=== PATIENT | male | born 1950 | race Caucasian/White ===

== ENCOUNTER 2018-07-19 18:17 | Inpatient (IN) | payer MEDICARE, OTHER ==
[~2018-07-19] VITALS: Ht 180.3 cm; Wt 109.3 kg
[2018-07-19 19:30] LABS: Basophils # (auto) 0.1 uL; Eosinophils # (auto) 0.1 uL; Hemoglobin 18.6 g/dL (13.5-17.5); Monocytes # (auto) 1.1 uL
[2018-07-19] MEDS ORDERED: IPRATROPIUM BROM 0.5 MG/2.5ML INH SOL HHN ONE (19:30)
[2018-07-19] MEDS ORDERED: methylPREDNISolone SOD SUCC 125 MG/2 ML VL IV ONE (19:30)
[2018-07-19] MEDS ORDERED: ALBUTEROL SULF 2.5 MG/0.5ML(0.5%) NEB SOLN HHN ONE (19:30)
[2018-07-19 19:32] LABS: Basophils % (auto) 0.8 % (0.0-2.0); Eosinophils % (auto) 1.2 % (0.0-7.0); Hematocrit 55.7 % (41.0-53.0); Lymphocytes # (auto) 1.1 uL; Lymphocytes % (auto) 12.6 % (10.0-50.0); Mean Corpuscular Hemoglobin 31.8 pg (28.0-32.0); Mean Corpuscular Hgb Conc. 33.4 g/dL (32.0-36.0); Mean Corpuscular Volume 95.3 fL (80.0-100.0); Monocytes % (auto) 12.9 % (0.0-12.0); Neutrophils # (auto) 6.5 uL; Neutrophils % (auto) 72.5 % (37.0-80.0); Nucleated Red Blood Cells % 0.5 %; Platelet Count (auto) 191 10^3/uL (140-450); Red Blood Cells 5.84 10^6/uL (4.5-5.90); Red Cell Distribution Width 15.6 % (11.8-14.3); White Blood Cell 8.9 10^3/uL (4.4-10.8)
[2018-07-19 19:33] LABS: Albumin 3.2 g/dL (3.4-5.0); Calcium 8.6 mg/dL (8.5-10.1); Potassium 3.2 mmol/L (3.5-5.1)
[2018-07-19 19:38] LABS: Bilirubin, Total 1.1 mg/dL (0.2-1.0); Total Protein 7.1 g/dL (6.4-8.2)
[2018-07-19] MEDS ORDERED: ONDANSETRON HCL 4 MG/2 ML VIAL IV PRN (21:00)
[2018-07-19] MEDS ORDERED: ACETAMINOPHEN 325 MG TAB PO PRN (21:00)
[2018-07-19] MEDS ORDERED: ALBUTEROL SULF 2.5 MG/0.5ML(0.5%) NEB SOLN NEB PRN (21:00)
[2018-07-19] MEDS ORDERED: HYDROcodone-ACET 5/325MG TAB PO PRN (21:00)
[2018-07-19] MEDS ORDERED: ASPirin 81 mg TAB PO ONE (21:00)
[2018-07-19] MEDS ORDERED: MORPHINE SULFATE 4 MG/ML SYR/VIAL IV PRN (21:00)
[2018-07-19] MEDS ORDERED: NITROGLYCERIN 0.4 MG SL TAB SL PRN (21:00)
[2018-07-19 21:22] VITALS: BP 113/69
[2018-07-19] MEDS ORDERED: cefTRIAXone 1GM/50ML D5W 50 ML IV ONE (21:45)
[2018-07-19] MEDS ORDERED: ATORVASTATIN 20 MG TAB PO SCH (22:00)
[2018-07-19] MEDS: FAMOTIDINE 20 MG TAB PO SCH (22:43)
[2018-07-19] MEDS ORDERED: CARVEDILOL 3.125 MG TAB PO ONE (22:45)
[2018-07-19] MEDS ORDERED: ATORVASTATIN 20 MG TAB PO ONE (22:45)
[2018-07-19] MEDS ORDERED: ENOXAPARIN SOD 100 MG/1 ML SYRINGE SC ONE (22:45)
[2018-07-19 23:15] LABS: INR 1.23 (0.9-1.15); Partial Thromboplastin Time 32.4 sec (23.78-33.04)
[2018-07-19 23:28] VITALS: BP 113/78
--- NOTE | 2018-07-19 23:28 | NUR ---
Telemetry admit from [facility] admitted to Telemetry unit after SBAR received. Patient oriented to NIKKI MEJIA, RN primary RN, unit, room, bed, and unit policies regarding patient care and visiting hours. Patient now on continuous telemetry monitoring, tele box # 21 and telemetry reading on arrival to unit is SR 83. Patient placed on bedside oxygen placed 3 L NC , weighed by bedscale and encouraged to call if they need something. All questions and concerns addressed, patient verbalized understanding. at bedside. Informed both pt and POC. stated would like for cardio Dr not to be [place]. Notified that will notify US and endorse to day RN. Pt uses sleep apnea at home. Pt states productive cough green sputum. Per and pt reports high risk for aspiration due to the flap in the neck no longer positioned correctly. will also endorse. HOB elevated. 2X side rails up. Patient is primary is from [facility]. Note:
[2018-07-20] MEDS: TEMAZEPAM 15 MG CAP PO PRN (00:42)
[2018-07-20] MEDS ORDERED: TRAZ-220 PO (01:41)
[2018-07-20] MEDS ORDERED: ROPI1TAB PO (01:41)
[2018-07-20] MEDS ORDERED: TIOT1AER IN (01:41)
[2018-07-20] MEDS ORDERED: FURO20TA3 PO (01:41)
[2018-07-20] MEDS ORDERED: PRAV20TA3 PO (01:41)
[2018-07-20] MEDS ORDERED: CARV6.25 PO (01:41)
[2018-07-20] MEDS ORDERED: APIX5TAB PO (01:41)
[2018-07-20] MEDS ORDERED: ASPI81TA27 PO (01:41)
[2018-07-20] MEDS ORDERED: ISOS60TA24 PO (01:41)
[2018-07-20] MEDS ORDERED: POTA10TA51 PO (01:41)
[2018-07-20] MEDS ORDERED: LEVO25TA49 PO (01:41)
[2018-07-20] MEDS ORDERED: OMEP20TA PO (01:41)
[2018-07-20] MEDS ORDERED: HCTZ25T PO (01:41)
[2018-07-20] MEDS ORDERED: CETI10TA80 PO (01:41)
[2018-07-20] MEDS ORDERED: COLCPOW2 PO (01:41)
[2018-07-20] MEDS ORDERED: ALLO300T2 PO (01:41)
--- NOTE | 2018-07-20 02:01 | NUR ---
ANA MARÍA HOSPITALIST No current Diet Order in place, pt states risk for aspiration but able to tolerate soft foods. Pt requesting following medications that he normally takes at midnight Ropinirol 3 mg TID Trazadone 100mg HS will continue to monitor pt.
--- NOTE | 2018-07-20 02:23 | NUR ---
HOSPITALIST CALL BACK Informed in regards to diet on pt. per Telephone order NPO except for medications. Hospitalist wanted to verify due to 2nd troponin level 0.386 that Lovenox 1 mg that was order was given Informed per Emar was given at 2255. will continue to monitor pt.
--- NOTE | 2018-07-20 02:30 | NUR ---
UA SENT TO LAB
[2018-07-20 03:11] LABS: Urine Bacteria NONE SEEN /hpf (None Seen); Urine Blood 2+ /uL (Negative); Urine Specific Gravity 1.021 (1.001-1.035); Urine WBC 82 /hpf (0 - 3)
--- NOTE | 2018-07-20 04:30 | NUR ---
followed communication order and did therapeutic phlebotomy of 500 cc for day one. Addendum: 07/20/18 at 1750 by Indira Reed RN time was 1630
[2018-07-20 04:35] VITALS: BP 113/65
[2018-07-20 06:28] LABS: Basophils # (auto) 0 uL; Basophils % (auto) 0.1 % (0.0-2.0); Eosinophils # (auto) 0 uL; Lymphocytes # (auto) 0.4 uL; Lymphocytes % (auto) 6.8 % (10.0-50.0); Monocytes # (auto) 0.1 uL; Monocytes % (auto) 1.2 % (0.0-12.0); Neutrophils % (auto) 91.9 % (37.0-80.0)
[2018-07-20 06:30] LABS: Hemoglobin 19.2 g/dL (13.5-17.5); Mean Corpuscular Hgb Conc. 34.1 g/dL (32.0-36.0); Mean Corpuscular Volume 93.9 fL (80.0-100.0); Nucleated Red Blood Cells % 0.1 %; Platelet Count (auto) 202 10^3/uL (140-450); Red Blood Cells 6.01 10^6/uL (4.5-5.90); Red Cell Distribution Width 15.5 % (11.8-14.3); White Blood Cell 6.5 10^3/uL (4.4-10.8)
[2018-07-20 06:33] LABS: Hematocrit 56.5 % (41.0-53.0)
[2018-07-20 06:42] LABS: Albumin 3.2 g/dL (3.4-5.0); BUN/Creatinine Ratio 17.9; Calcium 8.7 mg/dL (8.5-10.1); Potassium 3.5 mmol/L (3.5-5.1)
[2018-07-20 06:53] LABS: Bilirubin, Total 0.9 mg/dL (0.2-1.0); Total Protein 7.5 g/dL (6.4-8.2)
--- NOTE | 2018-07-20 07:21 | NUR ---
CLOSING NOTE Report endorsed to day Brie RANGEL Bed side report PT awake and alert informed in regards to home meds and [facility] orte[facility] pt
[2018-07-20 08:00] VITALS: BP 117/76
[2018-07-20] MEDS ORDERED: ADENOSINE 92 MG in GIVE UN-DILUTED 0 ML IV STA (08:25)
--- NOTE | 2018-07-20 09:32 | NUR ---
Respiratory note: WENT TO ASSESS PT FOR PRN TX, PT NOT IN ROOM. PT IS CURRENTLY HAVING A STRESS TEST DONE.
[2018-07-20 09:36] VITALS: BP 108/72
[2018-07-20] MEDS: cefTRIAXone 1GM/50ML D5W 50 ML IV SCH (11:27)
[2018-07-20] MEDS: ASPirin 81 mg TAB PO SCH (11:28)
[2018-07-20] MEDS: APIXABAN 5 MG TAB PO SCH ×2 (11:28→21:46)
[2018-07-20] MEDS: CARVEDILOL 3.125 MG TAB PO SCH ×2 (11:29→21:40)
[2018-07-20] MEDS: FAMOTIDINE 20 MG TAB PO SCH ×2 (11:29→21:47)
[2018-07-20] MEDS: ENOXAPARIN SOD 40 MG/0.4 ML SYRINGE SC SCH (11:39)
[2018-07-20 12:00] VITALS: BP 115/74
[2018-07-20] MEDS ORDERED: AZITHROMYCIN 500MG/ 250ML 250 ML IV ONE (12:00)
[2018-07-20] MEDS: ROPINIROLE 3 MG PO SCH ×2 (14:15→21:39)
[2018-07-20] MEDS: LEVALBUTEROL HYDROCHLORIDE 0.63 MG/3 ML NEB SOLN NEB SCH ×3 (14:45→22:45)
--- NOTE | 2018-07-20 14:45 | NUR ---
Respiratory note: SCHEDULED MED NEB TX NOT GIVEN DUE TO PATIENT HAVING A PROCEDURE AT BEDSIDE.
[2018-07-20] MEDS ORDERED: LEVALBUTEROL HCL 1.25 MG/3 ML NEB ONE ×3 (14:55→22:04)
[2018-07-20 16:00] VITALS: BP 128/74
--- NOTE | 2018-07-20 16:30 | NUR ---
Respiratory note: ABG NOT DONE, PER RN DUE TO UNKNOWN DISCHARGE DATE. WILL RE-ORDER WHEN DISCHARGE DATE IS DETERMINED.
--- NOTE | 2018-07-20 18:04 | NUR ---
assessment Per consult home 02 at 2L NC continuous. No ABG as of yet. I have notified the bedside nurse that I need an ABG. Once qualifying ABG is done fax to [facility] [phone] office [phone]. Fax order, face sheet, ABG, med list, and H & P. Addendum: 07/20/18 at 1806 by Dee Oates Amended: Links added.
--- NOTE | 2018-07-20 19:10 | NUR ---
Opening Shift Note Assumed care of patient, awake and alert. No S/S of distress/SOB or pain. at bedside. Instructed on POC and to call for assist PRN, will continue to monitor for changes Q1hr and PRN.2 x side rails up, bed alarm, bed locked and lowest position HOB elevated, pt on 3 LC oxygen. will continue to monitor pt.
[2018-07-20] MEDS: IPRATROPIUM BROM 0.5 MG/2.5ML INH SOL NEB PRN (19:57)
[2018-07-20] MEDS: traZODone HCL 50 MG TAB PO SCH (21:41)
[2018-07-20] MEDS: ATORVASTATIN 20 MG TAB PO SCH (21:46)
[2018-07-20 22:28] VITALS: BP 123/66
[2018-07-21] MEDS ORDERED: LEVALBUTEROL HCL 1.25 MG/3 ML NEB ONE ×5 (02:35→22:07)
[2018-07-21] MEDS: LEVALBUTEROL HYDROCHLORIDE 0.63 MG/3 ML NEB SOLN NEB SCH ×5 (02:38→22:13)
--- NOTE | 2018-07-21 02:48 | NUR ---
Respiratory note: INCREASED PT O2 FROM 2L TO 3L NC AT THIS TIME
[2018-07-21 05:43] VITALS: BP 121/75
[2018-07-21] MEDS: ROPINIROLE 3 MG PO SCH ×3 (05:47→21:39)
[2018-07-21 05:55] LABS: Basophils # (auto) 0.1 uL; Basophils % (auto) 0.5 % (0.0-2.0); Eosinophils # (auto) 0 uL; Hematocrit 53.2 % (41.0-53.0); Hemoglobin 17.4 g/dL (13.5-17.5); Lymphocytes # (auto) 0.7 uL; Lymphocytes % (auto) 5.7 % (10.0-50.0); Mean Corpuscular Hemoglobin 30.8 pg (28.0-32.0); Mean Corpuscular Hgb Conc. 32.8 g/dL (32.0-36.0); Mean Corpuscular Volume 93.9 fL (80.0-100.0); Monocytes # (auto) 0.7 uL; Monocytes % (auto) 5.7 % (0.0-12.0); Neutrophils # (auto) 11.5 uL; Neutrophils % (auto) 88.1 % (37.0-80.0); Nucleated Red Blood Cells % 0.1 %; Platelet Count (auto) 214 10^3/uL (140-450); Red Blood Cells 5.67 10^6/uL (4.5-5.90); Red Cell Distribution Width 15.4 % (11.8-14.3); White Blood Cell 13.1 10^3/uL (4.4-10.8)
[2018-07-21 06:13] LABS: BUN/Creatinine Ratio 26.1; Calcium 8.5 mg/dL (8.5-10.1); Magnesium 2.3 mg/dL (1.6-2.6); Potassium 3.3 mmol/L (3.5-5.1)
[2018-07-21 06:22] LABS: % Iron Saturation 6.4 % (20-55)
--- NOTE | 2018-07-21 07:17 | NUR ---
CLOSING NOTE Report endorsed to day RN, pt awake and alert no s/sx's of distress
--- NOTE | 2018-07-21 07:45 | NUR ---
OPENING NOTE OBSERVED PT SITTING UP IN BED. PT DENIES ANY PAIN/DISTRESS AT THIS TIME. PATIENT UPDATED ON POC AND PENDING ABG, VERBALIZED UNDERSTANDING. CALL LIGHT IS WITHIN REACH. FALL PRECAUTIONS IN PLACE. WILL CONTINUE TO MONITOR Q1H AND PRN. CONTINUE PT CARE.
--- NOTE | 2018-07-21 08:35 | NUR ---
ABG RT AT BEDSIDE FOR ABG.
[2018-07-21 09:00] VITALS: BP 118/67
[2018-07-21] MEDS: cefTRIAXone 1GM/50ML D5W 50 ML IV SCH (09:32)
[2018-07-21] MEDS ORDERED: OMEPRAZOLE 20MG/10ML ORAL SUSP PO SCH (10:00)
[2018-07-21] MEDS: ASPirin 81 mg TAB PO SCH (10:42)
[2018-07-21] MEDS: APIXABAN 5 MG TAB PO SCH ×2 (10:42→21:37)
[2018-07-21] MEDS: AZITHROMYCIN 500MG/ 250ML 250 ML IV SCH (10:42)
[2018-07-21] MEDS: FAMOTIDINE 20 MG TAB PO SCH (10:42)
[2018-07-21] MEDS: CARVEDILOL 3.125 MG TAB PO SCH ×2 (10:42→21:39)
[2018-07-21] MEDS: ENOXAPARIN SOD 40 MG/0.4 ML SYRINGE SC SCH (10:43)
--- NOTE | 2018-07-21 11:45 | NUR ---
SPOKE TO SPOKE TO DR. GAR RE: K 3.3. TO PLACE ORDERS FOR REPLACEMENT.
[2018-07-21] MEDS ORDERED: POTASSIUM CHL 10% (20 MEQ/15ML) 15ml ORAL SOLN PO ONE (12:00)
--- NOTE | 2018-07-21 12:24 | NUR ---
POTASSIUM REPLACEMENT RECEIVED PHONE CALL FROM PHARMACY REGARDING UNAVAILABILITY OF POTASSIUM LIQUID. SPOKE TO DR. GAR TO INFORM. ORDERS RECEIVED.
--- NOTE | 2018-07-21 12:25 | NUR ---
RT PAGED SPOKE TO DR. GAR REGARDING PATIENTS ABG NOT QUALIFYING HIM FOR O2 PER RT. ORDERS RECEIVED FOR REPEAT ABG. CALLED RT TO INFORM. AWARE.
[2018-07-21] MEDS ORDERED: POTASSIUM EFFERVESENT TAB 25 MEQ PO ONE (12:30)
[2018-07-21 12:40] VITALS: BP 110/69
--- NOTE | 2018-07-21 15:00 | NUR ---
NEUROLOGY CONSULT DR. CARTER AT BEDSIDE DISCUSSING POC WITH PT.
--- NOTE | 2018-07-21 15:13 | NUR ---
THERAPEUTIC PHLEBOTOMY 500 CC REMOVED PER MD ORDER.
--- NOTE | 2018-07-21 16:15 | NUR ---
ABG SPOKE TO DR. GAR REGARDING QUALIFYING ABG. ORDERS RECEIVED FOR CONTINUOUS HOME O2 AT 2L/NC.
--- NOTE | 2018-07-21 16:19 | NUR ---
[facility] CALLED [facility] TO CONFIRM FAX NUMBER. COVER SHEET, ORDER, AND ABG FAXED TO FACILITY. ORIGINALS PLACED IN CHART.
[2018-07-21 17:58] VITALS: BP 105/66
--- NOTE | 2018-07-21 18:06 | NUR ---
POM ADDITIONAL RIPINOROLE TABLETS BROUGHT IN BY PATIENTS . MEDICATION BROUGHT DOWN TO PHARMACY, FORM PLACED IN CHART.
[2018-07-21] MEDS: IPRATROPIUM BROM 0.5 MG/2.5ML INH SOL NEB PRN ×2 (18:11→22:13)
--- NOTE | 2018-07-21 18:20 | NUR ---
ROUNDS PT SITTING UP IN BED, BREATHING TX IN PROGRESS. NO ACUTE DISTRESS NOTED. REMAINS AT BEDSIDE. ENCOURAGED TO CONTACT STAFF FOR PRN ASSISTANCE. CALL LIGHT IS WITHIN REACH.
[2018-07-21] MEDS: ATORVASTATIN 20 MG TAB PO SCH (21:37)
[2018-07-21] MEDS: PRAMIPEXOLE DIHYDROCHLORIDE MO 0.25 MG TAB PO SCH (21:38)
[2018-07-21] MEDS: traZODone HCL 50 MG TAB PO SCH (21:38)
[2018-07-21] MEDS: TEMAZEPAM 15 MG CAP PO PRN (21:39)
[2018-07-21 21:53] VITALS: BP 103/70
--- NOTE | 2018-07-22 00:34 | NUR ---
Opening Shift Note Assumed care of patient, awake and alert. No S/S of distress/SOB or pain. Patient on 3L nasal canula. Bed locked in lowest position, side rails upx2, call light within reach. Instructed on POC and to call for assist PRN, will continue to monitor for changes Q1hr and PRN.
[2018-07-22] MEDS: LEVALBUTEROL HYDROCHLORIDE 0.63 MG/3 ML NEB SOLN NEB SCH ×6 (02:35→22:05)
[2018-07-22] MEDS ORDERED: LEVALBUTEROL HCL 1.25 MG/3 ML NEB ONE ×4 (02:44→18:38)
[2018-07-22 04:42] VITALS: BP 101/71
[2018-07-22 05:49] LABS: Basophils # (auto) 0.1 uL; Basophils % (auto) 0.6 % (0.0-2.0); Eosinophils # (auto) 0.2 uL; Eosinophils % (auto) 1.9 % (0.0-7.0); Hemoglobin 16.3 g/dL (13.5-17.5); Lymphocytes # (auto) 1.5 uL; Lymphocytes % (auto) 15.7 % (10.0-50.0); Mean Corpuscular Hemoglobin 31.2 pg (28.0-32.0); Mean Corpuscular Hgb Conc. 33.3 g/dL (32.0-36.0); Mean Corpuscular Volume 93.9 fL (80.0-100.0); Monocytes % (auto) 10.5 % (0.0-12.0); Neutrophils % (auto) 71.3 % (37.0-80.0); Nucleated Red Blood Cells % 0.1 %; Platelet Count (auto) 208 10^3/uL (140-450); Red Blood Cells 5.22 10^6/uL (4.5-5.90); Red Cell Distribution Width 15.7 % (11.8-14.3); White Blood Cell 9.8 10^3/uL (4.4-10.8)
[2018-07-22] MEDS: PRAMIPEXOLE DIHYDROCHLORIDE MO 0.25 MG TAB PO SCH ×3 (05:49→21:42)
[2018-07-22] MEDS: ROPINIROLE 3 MG PO SCH ×3 (05:49→21:43)
[2018-07-22 06:07] LABS: Calcium 8.3 mg/dL (8.5-10.1); Magnesium 2.3 mg/dL (1.6-2.6); Potassium 3.6 mmol/L (3.5-5.1)
[2018-07-22 06:09] LABS: BUN/Creatinine Ratio 22.2
[2018-07-22] MEDS: IPRATROPIUM BROM 0.5 MG/2.5ML INH SOL NEB PRN ×2 (06:19→10:00)
[2018-07-22 08:00] VITALS: BP 109/66
[2018-07-22] MEDS: cefTRIAXone 1GM/50ML D5W 50 ML IV SCH (10:27)
[2018-07-22] MEDS: APIXABAN 5 MG TAB PO SCH ×2 (10:28→21:41)
[2018-07-22] MEDS: ASPirin 81 mg TAB PO SCH (10:28)
[2018-07-22] MEDS: PANTOPRAZOLE 40 MG TAB PO SCH (10:28)
[2018-07-22] MEDS: AZITHROMYCIN 500MG/ 250ML 250 ML IV SCH (10:28)
[2018-07-22] MEDS: CARVEDILOL 3.125 MG TAB PO SCH ×2 (10:32→21:42)
[2018-07-22 12:00] VITALS: BP 102/65
[2018-07-22] MEDS ORDERED: LACTULOSE 20Gm/30ML SOLN PO ONE (15:00)
[2018-07-22] MEDS ORDERED: LACTULOSE 20Gm/30ML SOLN PO PRN (15:00)
[2018-07-22 16:00] VITALS: BP 110/68
--- NOTE | 2018-07-22 19:30 | NUR ---
Opening Shift Note Assumed care of patient, awake and alert. No S/S of distress/SOB or pain. Patient on 2L nasal canula. Bed locked in lowest position, side rails upx2, call light within reach. Instructed on POC and to call for assist PRN, will continue to monitor for changes Q1hr and PRN.
[2018-07-22 21:25] VITALS: BP 115/57
[2018-07-22] MEDS: DOCUSATE SOD 100 MG CAP PO SCH (21:41)
[2018-07-22] MEDS: ATORVASTATIN 20 MG TAB PO SCH (21:41)
[2018-07-22] MEDS: traZODone HCL 50 MG TAB PO SCH (21:42)
[2018-07-23] MEDS: LEVALBUTEROL HYDROCHLORIDE 0.63 MG/3 ML NEB SOLN NEB SCH ×5 (02:00→18:00)
[2018-07-23 02:34] VITALS: BP 115/57
[2018-07-23 04:55] VITALS: BP 98/63
[2018-07-23 05:40] LABS: Basophils # (auto) 0.1 uL; Basophils % (auto) 0.6 % (0.0-2.0); Eosinophils # (auto) 0.3 uL; Eosinophils % (auto) 3.5 % (0.0-7.0); Hematocrit 44.8 % (41.0-53.0); Hemoglobin 15.3 g/dL (13.5-17.5); Lymphocytes # (auto) 1.4 uL; Lymphocytes % (auto) 16.1 % (10.0-50.0); Mean Corpuscular Hemoglobin 32.2 pg (28.0-32.0); Mean Corpuscular Hgb Conc. 34.1 g/dL (32.0-36.0); Mean Corpuscular Volume 94.7 fL (80.0-100.0); Monocytes # (auto) 0.9 uL; Monocytes % (auto) 10.1 % (0.0-12.0); Neutrophils # (auto) 6.2 uL; Neutrophils % (auto) 69.7 % (37.0-80.0); Nucleated Red Blood Cells % 0.2 %; Platelet Count (auto) 179 10^3/uL (140-450); Red Blood Cells 4.74 10^6/uL (4.5-5.90); Red Cell Distribution Width 15.6 % (11.8-14.3); White Blood Cell 8.8 10^3/uL (4.4-10.8)
[2018-07-23] MEDS ORDERED: LEVALBUTEROL HCL 1.25 MG/3 ML NEB ONE ×3 (05:46→13:54)
[2018-07-23] MEDS: IPRATROPIUM BROM 0.5 MG/2.5ML INH SOL NEB PRN ×4 (05:55→18:09)
[2018-07-23 06:19] LABS: Potassium 3.7 mmol/L (3.5-5.1)
[2018-07-23] MEDS: PRAMIPEXOLE DIHYDROCHLORIDE MO 0.25 MG TAB PO SCH ×2 (06:21→16:10)
[2018-07-23] MEDS: ROPINIROLE 3 MG PO SCH ×2 (06:21→16:06)
[2018-07-23 06:26] LABS: Albumin 2.8 g/dL (3.4-5.0); BUN/Creatinine Ratio 18.9; Bilirubin, Total 0.7 mg/dL (0.2-1.0); Calcium 8.4 mg/dL (8.5-10.1); Magnesium 2.5 mg/dL (1.6-2.6); Total Protein 5.9 g/dL (6.4-8.2)
[2018-07-23 08:00] VITALS: BP 112/64
--- NOTE | 2018-07-23 08:40 | NUR ---
Patient's daughter Jill Longoria called asking if patient is going home today. Waiting for MD to come over. Addendum: 07/23/18 at 0915 by Pretty Quick RN Patient's Jill Longoria
--- NOTE | 2018-07-23 08:57 | NUR ---
Paged Director Of Conservation Dee.
--- NOTE | 2018-07-23 09:02 | NUR ---
Dr. Quinn ordered patient okay to go home as per Neurology.
--- NOTE | 2018-07-23 09:12 | NUR ---
Called [facility] ([phone]), spoke with Anna to follow up the portable O2 for home. Anna put me on hold.
--- NOTE | 2018-07-23 09:18 | NUR ---
Spoke with Vicky from [facility] ([phone]). Vicky said they just received the request for home O2 today, they were closed yesterday, they will process the request when they receive the discharge order with home O2, ABG results, H&P. [facility] .
--- NOTE | 2018-07-23 09:40 | NUR ---
Copies of order for home O2, H&P, ABGs qualified for home O2 sent via Fax to [facility] ([phone]). Waiting for MD to come over.
[2018-07-23] MEDS: DOCUSATE SOD 100 MG CAP PO SCH (10:00)
[2018-07-23] MEDS: cefTRIAXone 1GM/50ML D5W 50 ML IV SCH (10:08)
[2018-07-23] MEDS: AZITHROMYCIN 500MG/ 250ML 250 ML IV SCH (10:08)
[2018-07-23] MEDS: ASPirin 81 mg TAB PO SCH (10:09)
[2018-07-23] MEDS: APIXABAN 5 MG TAB PO SCH (10:09)
[2018-07-23] MEDS: CARVEDILOL 3.125 MG TAB PO SCH (10:09)
[2018-07-23] MEDS: PANTOPRAZOLE 40 MG TAB PO SCH (10:09)
--- NOTE | 2018-07-23 10:15 | NUR ---
Patient refused Colace. Patient stated he had bowel movement yesterday.
[2018-07-23 11:08] LABS: Folate (Folic Acid) 5.35 ng/mL (5.38-24)
[2018-07-23 12:00] VITALS: BP 105/67
--- NOTE | 2018-07-23 13:40 | NUR ---
Ki Spain at bedside. made aware [facility] requested to have the form for home O2 order be filled up and signed so they could process the home O2 to be delivered at bedside. Dr. Vaughan filled up and signed the form, to put in discharge orders.
--- NOTE | 2018-07-23 14:14 | NUR ---
[facility] form filled up and signed by Ki Spain for request for home O2 sent via fax to [facility].
--- NOTE | 2018-07-23 15:32 | NUR ---
[facility] form resent via ).
[2018-07-23 16:00] VITALS: BP 101/66
--- NOTE | 2018-07-23 16:15 | NUR ---
Explained to patient that [facility] personnel is on their way to deliver the portable O2. at bedside.
--- NOTE | 2018-07-23 16:15 | NUR ---
POM from the Pharmacy returned to patient. has the POM, she signed the POM form for the patient.
--- NOTE | 2018-07-23 16:40 | NUR ---
Patient's is upset, stated if the home O2 is not at bedside by 5:00 pm, they will go home.
--- NOTE | 2018-07-23 16:40 | NUR ---
[facility] contact # given to .
[2018-07-23 16:57] VITALS: BP 101/66
--- NOTE | 2018-07-23 17:10 | NUR ---
Portable home O2 delivered by [facility] personnel at bedside.
--- NOTE | 2018-07-23 17:40 | NUR ---
Discharge instructions given as ordered. Encourage to follow up with PMD as instructed. All questions and concerns addressed. Patient verbalized understanding. Medication reconciliation form completed and copy given to patient. Home medications held in Pharmacy returned to patient. IV removed with catheter intact, pressure dressing applied. Telemetry unit returned to [facility]. Patient taken to vehicle via wheelchair with all personal belongings, including portable home O2 delivered by [facility], patient accompanied by staff and family member. No distress noted at time of departure.
[2018-07-24] MEDS ORDERED: AZITHROMYCIN 250 MG TAB PO SCH (10:00)
--- NOTE | 2018-07-25 08:50 | NUR ---
re-assessment ABG was done and sent to [facility] by bedside nurse. 02 was delivered to bedside on 07/23/18 and patient discharged home. Addendum: 07/25/18 at 0851 by Dee RANGEL Amended: Links added.
== END 2018-07-23 17:40 | disposition home or self-care (01) | DRG 280 ==
LOC: ER 18:27 → TELE 21:03 → TELE-WESTW 23:18
PROVIDERS: ADMIT Nurse Practitioner; ATTEND Family Medicine
DX: I21.4 Non-ST elevation (NSTEMI) myocardial infarction (principal); J96.91 Respiratory failure, unspecified with hypoxia; N39.0 Urinary tract infection, site not specified; J44.1 Chronic obstructive pulmonary disease with (acute) exacerbation; I11.9 Hypertensive heart disease without heart failure; G20 Parkinson's disease; G62.9 Polyneuropathy, unspecified; R26.9 Unspecified abnormalities of gait and mobility; D75.1 Secondary polycythemia; I25.2 Old myocardial infarction; E66.9 Obesity, unspecified; K57.90 Diverticulosis of intestine, part unspecified, without perforation or abscess without bleeding; K76.0 Fatty (change of) liver, not elsewhere classified; K59.00 Constipation, unspecified; F17.200 Nicotine dependence, unspecified, uncomplicated; I25.10 Atherosclerotic heart disease of native coronary artery without angina pectoris; I48.0 Paroxysmal atrial fibrillation; E61.1 Iron deficiency; Z79.01 Long term (current) use of anticoagulants; Z79.899 Other long term (current) drug therapy; Z68.33 Body mass index [BMI] 33.0-33.9, adult; Z82.49 Family history of ischemic heart disease and other diseases of the circulatory system; Z86.73 Personal history of transient ischemic attack (TIA), and cerebral infarction without residual deficits; Z83.3 Family history of diabetes mellitus; Z88.8 Allergy status to other drugs, medicaments and biological substances
CPT/HCPCS: 36415; 36600; 71045; 71250; 74176; 80048; 80053; 81001; 82140; 82607; 82668; 82728; 82746; 82805; 83036; 83540; 83550; 83605; 83615; 83735; 83880; 84443; 84484; 85025; 85379; 85610; 85730; 87040; 93005; 93017; 93306; 94640; 96365; 96372; 96375; 97163; 99291; G0378; J0153; J0696